=== PATIENT | male | born 1945 | race Caucasian/White ===

== ENCOUNTER 2017-06-25 09:04 | Emergency (ER) | payer MEDICARE, OTHER | END 2017-06-25 10:50 | disposition home or self-care (01) | LOC: ER 09:04 | DX: M25.512 Pain in left shoulder (principal); F17.200 Nicotine dependence, unspecified, uncomplicated; E11.9 Type 2 diabetes mellitus without complications; Z88.6 Allergy status to analgesic agent; W19.XXXA Unspecified fall, initial encounter | CPT/HCPCS: 73030-LT; 99283 ==